=== PATIENT | female | born 1995 | race Caucasian/White ===

== ENCOUNTER 2019-01-03 07:31 | Emergency (ER) | payer MEDICAID ==
[~2019-01-03] VITALS: Ht 160 cm; Wt 68.0 kg
[2019-01-03 07:36] VITALS: BP_SYST 125
--- NOTE | 2019-01-03 07:41 | NUR ---
Patient to ER bed 7 to gown for evaluation. Side rails up. Report given to Marilynn WILLIAMSON.
--- NOTE | 2019-01-03 07:46 | NUR ---
PATIENT CAME IN COMPLAINING OF DIRRHEA AND VOMITING FOR PAST 2 DAYS. PATIENT STATES SHE HAS NOT BEEN ABLE TO EAT OR DRINK BECAUSE IT JUST COMES BACK OUT. PATIENT COMPLAINING OF BODY ACHES 12/17. PATIENT DENIES SOB, FEVER, AND CHILLS. PATIENT ALERT AND ORIENTED X4.
--- NOTE | 2019-01-03 07:52 | NUR ---
ER Dr. VAZQUEZ at bedside examining patient.
[2019-01-03] MEDS ORDERED: DIPHENOXYLATE HCL/ATROP SULF 2.5 MG TAB PO ONE (08:00)
[2019-01-03] MEDS ORDERED: ONDANSETRON HCL 4 MG/2 ML VIAL IVP ONE (08:00)
[2019-01-03] MEDS ORDERED: NACL 0.9% 1,000 ML IV ONE (08:00)
[2019-01-03 08:40] LABS: BASOPHILS % (AUTO) 0.2 % (0.0-2.0); EOSINOPHILS # (AUTO) 0.1 K/uL (0.0-0.4); EOSINOPHILS % (AUTO) 1.1 % (0.0-4.0); HEMATOCRIT 42.9 % (36-48); HEMOGLOBIN 14.8 g/dL (12.0-16.0); LYMPHOCYTES # (AUTO) 0.8 K/uL (1.0-5.5); LYMPHOCYTES % (AUTO) 11.5 % (20.5-51.5); MEAN CORPUSCULAR HEMOGLOBIN 33 pg (27-31); MEAN CORPUSCULAR HGB CONC 35 % (32-36); MEAN CORPUSCULAR VOLUME 95 fL (79.0-98.0); MONOCYTES # (AUTO) 0.7 K/uL (0.0-1.0); MONOCYTES % (AUTO) 10.6 % (1.7-9.3); NEUTROPHILS # (AUTO) 5.4 K/uL (1.8-7.7); NEUTROPHILS % (AUTO) 76.6 % (40.0-70.0); PLATELET COUNT (AUTO) 278 K/uL (130-430); RED BLOOD CELL COUNT(AUTO) 4.52 MIL/uL (4.2-6.2); RED CELL DISTRIBUTION WIDTH 13.5 % (9.0-15.0)
[2019-01-03 08:55] LABS: CALCIUM 8.2 mg/dL (8.4-11.0); CREATININE 0.61 mg/dL (0.55-1.30); POTASSIUM 3.4 mmol/L (3.5-5.1)
[2019-01-03 09:00] LABS: ALBUMIN 3.5 g/dL (3.4-4.8); TOTAL BILIRUBIN 1.4 mg/dL (0.0-1.0)
--- NOTE | 2019-01-03 09:49 | NUR ---
Patient given written and verbal discharge instructions and verbalizes understanding. ER MD discussed with patient the results and treatment provided. Patient in stable condition. ID arm band removed. IV catheter removed intact and dressing applied, no active bleeding. Rx of LOMOTIL given. Patient educated on pain management and to follow up with PMD. Pain Scale 2/10 TOLERABLE. Opportunity for questions provided and answered. Medication side effect fact sheet provided.
[2019-01-03 09:51] VITALS: BP_SYST 123
== END 2019-01-03 09:51 | disposition home or self-care (01) ==
LOC: SED 07:31
DX: K52.9 Noninfective gastroenteritis and colitis, unspecified (principal)
CPT/HCPCS: 36415; 80053; 81002; 81025; 83690; 85025; 96361; 96374; 99283; J2405; J7030

== ENCOUNTER 2019-04-11 08:58 | Emergency (ER) | payer MEDICAID ==
[~2019-04-11] VITALS: Ht 160 cm; Wt 72.6 kg
--- NOTE | 2019-04-11 09:03 | NUR ---
Patient to ER bed 05 to gown for evaluation. Side rails up.
[2019-04-11 09:05] VITALS: BP_SYST 125
--- NOTE | 2019-04-11 09:11 | NUR ---
Patient c/o of nausea that started today and diarrhea that started x 2 days ago as well as diffuse abdominal discomfort. Patient stated it could have been from something she ate. Patient in no signs of distress @ this time.
--- NOTE | 2019-04-11 09:13 | NUR ---
Dr Bhatti @ bedside for examination.
[2019-04-11 09:22] VITALS: BP_SYST 125
--- NOTE | 2019-04-11 09:22 | NUR ---
Patient given written and verbal discharge instructions and verbalizes understanding. ER MD discussed with patient the results and treatment provided. Patient in stable condition. ID arm band removed. Rx of lomotil and bactri, given. Patient educated on pain management and to follow up with PMD. Pain Scale 0/10. Medication side effect fact sheet provided.
== END 2019-04-11 09:22 | disposition home or self-care (01) ==
LOC: SED 08:58
DX: K52.9 Noninfective gastroenteritis and colitis, unspecified (principal)
CPT/HCPCS: 81025; 99283

== ENCOUNTER 2019-06-30 12:35 | Emergency (ER) | payer MEDICAID ==
[~2019-06-30] VITALS: Ht 160 cm; Wt 72.6 kg
[2019-06-30 12:57] VITALS: BP_SYST 112
--- NOTE | 2019-06-30 13:04 | NUR ---
Patient triaged and placed in waiting room. VSS and patient appears in no acute distress at this time. Awaiting available bed, and MD notified of need for MSE.
--- NOTE | 2019-06-30 14:00 | NUR ---
Patient moved to hallway 1.
--- NOTE | 2019-06-30 14:01 | NUR ---
Patient is awake, alert, and oriented x4. Patient states she woke up around 0300 today feeling flu like symptoms. She states she has to take her LSAT tomorrow and would like her symptoms taken care of.
[2019-06-30] MEDS ORDERED: NACL 0.9% 1,000 ML IV ONE (14:15)
[2019-06-30] MEDS ORDERED: KETOROLAC TROMETHAMINE 30 MG VIAL IVP ONE (14:15)
--- NOTE | 2019-06-30 14:16 | NUR ---
ER Dr. Patterson at bedside examining patient.
[2019-06-30 14:53] VITALS: BP_SYST 112
--- NOTE | 2019-06-30 14:53 | NUR ---
Patient given written and verbal discharge instructions and verbalizes understanding. ER MD discussed with patient the results and treatment provided. Patient in stable condition. ID arm band removed. Rx of tamiflu given. Patient educated on pain management and to follow up with PMD. Pain Scale 0/10. Opportunity for questions provided and answered. Medication side effect fact sheet provided.
== END 2019-06-30 14:53 | disposition home or self-care (01) ==
LOC: SED 12:35
DX: R05 Cough (principal); R51 Headache; M79.18 Myalgia, other site
CPT/HCPCS: 96374; 99283; J1885; J7030

== ENCOUNTER 2020-03-28 09:41 | Emergency (ER) | payer MEDICAID ==
[~2020-03-28] VITALS: Ht 160 cm; Wt 77.1 kg
[2020-03-28 09:45] VITALS: BP_SYST 110
--- NOTE | 2020-03-28 09:45 | NUR ---
BROUGHT BACK TO BED #6 VIA WHEELCHAIR, PLACED IN BED AND TRIAGED. REPORT GIVEN TO ELIAS
--- NOTE | 2020-03-28 09:46 | NUR ---
Patient presented to ER C/O abdominal pain. Patient Ambulatory to ER A&Ox4, afebrile, skin pink and wam, pain /, denies N/V/D. Patient states she has left lower pelvic pain today.
--- NOTE | 2020-03-28 10:20 | NUR ---
ER at bedside examining patient.
[2020-03-28] MEDS ORDERED: KETOROLAC TROMETHAMINE 60 MG/2 ML VIAL IM ONE ×2 (10:30→10:45)
[2020-03-28 11:09] VITALS: BP_SYST 110
--- NOTE | 2020-03-28 11:10 | NUR ---
Patient given written and verbal discharge instructions and verbalizes understanding. ER MD discussed with patient the results and treatment provided. Patient in stable condition. ID arm band removed. Rx of IBU/NORCO given. Patient educated on pain management and to follow up with PMD. Pain Scale 2/10 Opportunity for questions provided and answered. Medication side effect fact sheet provided.
--- NOTE | 2020-03-28 12:02 | NUR ---
PT RETURNED AND CRUTCHES GIVEN TO PT.
== END 2020-03-28 11:10 | disposition home or self-care (01) ==
LOC: SED 09:41
DX: R10.32 Left lower quadrant pain (principal)
CPT/HCPCS: 96372; 99283; J1885

== ENCOUNTER 2021-09-02 20:08 | Emergency (ER) | payer MEDICAID ==
[~2021-09-02] VITALS: Ht 160 cm; Wt 88.5 kg
[2021-09-02 20:17] VITALS: BP_SYST 111
--- NOTE | 2021-09-02 22:40 | NUR ---
Pt brought by self, A&Ox4, pt presents to ER with R hand pain /swelling after hitting the corner of a bed, skin pink and warm, cap refill <3, VSS, no open injuries noted.
--- NOTE | 2021-09-02 23:33 | NUR ---
Patient to [facility] for evaluation. Side rails up. Report given to Ryan WILLIAMSON.
--- NOTE | 2021-09-02 23:33 | NUR ---
Pt report received. Pt states "I think I might have a fractured arm." Pt c/o right hand and wrist swelling and pain since . Pt states that while jogging, she hit her hand on the corner of a table. Swelling noted to medial right hand extending to medial aspect of wrist. No deformities noted. Pt able to open right hand and move fingers without difficulty but c/o pain with attempts at making a fist. Cap refil < 3 sec to nail beds.
--- NOTE | 2021-09-02 23:45 | NUR ---
Dr. Patterson assessing pt.
[2021-09-02] MEDS ORDERED: NAPR-690 PO (23:46)
[2021-09-02 23:49] VITALS: BP_SYST 122
--- NOTE | 2021-09-02 23:49 | NUR ---
Patient given written and verbal discharge instructions and verbalizes understanding. ER MD discussed with patient the results and treatment provided. Patient in stable condition. ID arm band removed. Rx of Naproxen given. Patient educated on pain management and to follow up with PMD. Pain Scale 0/10. Opportunity for questions provided and answered. Medication side effect fact sheet provided.
== END 2021-09-02 23:49 | disposition home or self-care (01) ==
LOC: SED 20:08
DX: S60.221A Contusion of right hand, initial encounter (principal); X58.XXXA Exposure to other specified factors, initial encounter; Y93.89 Activity, other specified; Y92.89 Other specified places as the place of occurrence of the external cause; Y99.8 Other external cause status
CPT/HCPCS: 99283

== ENCOUNTER 2022-09-27 11:50 | Emergency (ER) | payer MEDICAID ==
[~2022-09-27] VITALS: Ht 160 cm; Wt 74.8 kg
[2022-09-27 11:50] VITALS: BP_SYST 122
[~2022-09-27 11:50] MED LIST: NAPR-690 PO
--- NOTE | 2022-09-27 11:50 | NUR ---
BROUGHT BACK TO BED #3 AND TRIAGED. WILL ASSUME CARE
--- NOTE | 2022-09-27 12:00 | NUR ---
PT STATES RIGHT LOWER BACK PAIN AFTER USING WEIGHT MACHINE AT GYM. PT STATES INCREASED PAIN WITH AMBULATION AND SITTING.
--- NOTE | 2022-09-27 12:08 | NUR ---
DR CELAYA AT BEDSIDE FOR EVALUATION
[2022-09-27] MEDS ORDERED: KETOROLAC TROMETHAMINE 60 MG/2 ML VIAL IM ONE (12:30)
[2022-09-27] MEDS ORDERED: IBUP-1971 PO (12:32)
[2022-09-27] MEDS ORDERED: SOM350 PO (12:32)
--- NOTE | 2022-09-27 13:25 | NUR ---
Patient given written and verbal discharge instructions and verbalizes understanding. ER MD discussed with patient the results and treatment provided. Patient in stable condition. ID arm band removed. Rx of SIMON BROWN given. Patient educated on pain management and to follow up with PMD. Pain Scale 0/10. Opportunity for questions provided and answered. Medication side effect fact sheet provided.
== END 2022-09-27 13:25 | disposition home or self-care (01) ==
LOC: SED 11:50
DX: S39.012A Strain of muscle, fascia and tendon of lower back, initial encounter (principal); Z79.899 Other long term (current) drug therapy; X58.XXXA Exposure to other specified factors, initial encounter; Y93.43 Activity, gymnastics; Y92.89 Other specified places as the place of occurrence of the external cause; Y99.8 Other external cause status
CPT/HCPCS: 99283; 96372; J1885